=== PATIENT | female | born 1980 | race Caucasian/White ===

== ENCOUNTER 2019-06-04 00:58 | Inpatient (IN) | payer BC ==
[~2019-06-04] VITALS: Ht 170.2 cm; Wt 81.7 kg
[~2019-06-04 00:58] MED LIST: ACYCLOVIR; ALPRAZOLAM; COUMADIN6 MG PO; DARVOCET-N 1001 EACH PO; FLAGYL500 MG PO; LEXAPRO 10 MG T10 MG PO; NORCO 5-325 TA1 EACH PO; VICODIN 5-5001 EACH PO
[2019-06-04 01:00] VITALS: BP 111/69
[2019-06-04 01:19] LABS: BE(vivo) 0.8 mmol/L (-2 to +3); HCO3 23.3 mmol/L (22.0-26.0); PCO2 31.8 mmHg (35.0-45.0); pH 7.483 (7.360-7.450); sO2 97.2 % (92.0-98.0)
[2019-06-04 01:24] LABS: URINE BILIRUBIN 1+ (Negative); URINE BLOOD 2+ (Negative); URINE CLARITY CLOUDY; URINE COLOR YELLOW; URINE GLUCOSE-RANDOM* NEGATIVE (Negative); URINE KETONES 1+ (Negative); URINE LEUKOCYTES NEGATIVE (Negative); URINE NITRITE NEGATIVE (Negative); URINE PROTEIN (DIPSTICK) 3+ (Negative); URINE SPECIFIC GRAVITY >= 1.030 (1.005-1.035); URINE UROBILINOGEN 0.2 E.U./dl (0.2-1.0)
[2019-06-04 01:26] LABS: AMP/METHAMP Negative (Negative); BARBITURATES Negative (Negative); BENZODIAZEPINES Negative (Negative); COCAINE Negative (Negative); METHADONE Negative (Negative); OPIATES Negative (Negative); PCP Negative (Negative)
[2019-06-04 01:34] LABS: ANION GAP 15 mmol/L (7-16); BUN 8 mg/dL (7-18); CALCIUM 7.7 mg/dL (8.5-10.1); CHLORIDE 91 mmol/L (98-107); CO2 26 mmol/L (21-32); CREATININE 0.6 mg/dL (0.6-1.0); GLUCOSE 115 mg/dL (74-106); POTASSIUM 3.1 mmol/L (3.5-5.1); SODIUM 132 mmol/L (136-145)
[2019-06-04 01:36] LABS: BASOPHILS 0.3 % (0.0-2.0); HEMATOCRIT 44.9 % (37.0-47.0); HEMOGLOBIN 15.4 gm/dL (12.0-15.0); MCH 31.7 pg (26.0-34.0); MCHC 34.3 g/dL (28.0-37.0); MCV 92.6 fL (80.0-100.0); PLATELET COUNT 169 thou/uL (150-400); POLYS 82.7 % (36.0-66.0); RBC 4.85 mil/uL (4.20-5.00); RDW 13.3 % (10.5-14.5); WBC 12.1 thou/uL (4.0-11.0)
[2019-06-04 01:44] LABS: BACTERIA 1-9 Few /HPF (None Seen); MUCUS >6 Heavy strn/LPF (None Seen); SQUAMOUS 0-3 Few /LPF (0-3); URINE RBC 3-10 Few /HPF (0-2); URINE WBC 0-5 Rare /HPF (0-5)
[2019-06-04 01:45] LABS: AMORPHOUS URATES Moderate /LPF (None Seen); FINE GRANULAR CASTS 0-3 Few /LPF (None Seen); HYALINE CASTS 4-10 Moderate /LPF (None Seen)
[2019-06-04 01:45] LABS: ALBUMIN 3.9 g/dL (3.4-5.0); LIPASE 126 U/L (73-393); SALICYLATE < 2.8 mg/dL (2.8-20.0); SGOT 99 U/L (15-37); SGPT 101 U/L (30-65); TOTAL BILIRUBIN 0.6 mg/dL (<0.1-1.0); TOTAL PROTEIN 7.9 g/dL (6.4-8.2); TROPONIN-I <0.06 ng/mL (<0.06)
[2019-06-04] MEDS ORDERED: DEPAKOTE ER500 M1 PO (07:17)
[2019-06-04] MEDS ORDERED: OMEPRAZOLE40 MG PO (07:17)
[2019-06-04 10:00] VITALS: BP 136/69
[2019-06-04 10:18] VITALS: BP 140/80
[2019-06-04 10:30] VITALS: BP 157/75
[2019-06-04] MEDS ORDERED: SEROQUEL 25 MG25 M1 PO (10:54)
--- NOTE | 2019-06-04 11:44 | EKG ---
[address] [address] ELECTROCARDIOGRAM REPORT Name: LI LIZARRAGA Room #: 203-P ADM IN .R.#: [id number] Admission: 06/04/19 Attend Phys: Magdaleno Suh MD Discharge: Date of : 82 Report #: [id number] THIS REPORT FOR: //name// 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
[2019-06-04 15:37] VITALS: BP 137/76
--- NOTE | 2019-06-04 16:40 | NUR ---
ADMITTED PATIENT FROM ER. SHE WAS QUITE ANXIOUS ASKING NUMEROUS QUESTIONS AT ONCE. SHE CONCERNED HER WITHDRAWALS WAS ADEQUATELY TREATED SHE FELT NAUSEOUS, " FEEL TERRBILE", ETC. CIWA INITIATED AND PATIENT MEDICATED ADQUATELY. SHE DID SLEEP FOR THREE HOURS, WOKE AND USED THE BATHROOM WITH MINIMAL JITTERING NOTED. NOW SLEEPING. WILL CONT WITH PLAN OF CARE.
[2019-06-04 20:00] VITALS: BP 139/73
[2019-06-05 00:43] VITALS: BP 141/69
--- NOTE | 2019-06-05 03:45 | NUR ---
ASSUMED PT CARE AROUND 1900. PT IS A&OX3-4, BUT FORGETFUL. LORAZEPAM GIVEN INDICATED FOR ETOH W/D PER CIWA SCORES. PT IS ANXIOUS AND RESTLESS AT TIMES. SHE C/O HEADACHE MOST OF THE NIGHT. PT ALSO STATED SHE IS HAVING VIVID DREAMS AND HALLUCINATIONS. IVF INFUSING ORDERED. UP TO BSC OR BTR TO VOID. FALL PRECAUTIONS IN PLACE. VSS. AFEBRILE. PROGRESSING SLOWLY TOWARD POC GOALS. WILL CONTINUE TO MONITOR FURTHER.
[2019-06-05 04:20] VITALS: BP 134/85
[2019-06-05 05:07] LABS: HEMATOCRIT 37.1 % (37.0-47.0); MCH 31.9 pg (26.0-34.0); MCHC 33.8 g/dL (28.0-37.0); MCV 94.3 fL (80.0-100.0); RBC 3.93 mil/uL (4.20-5.00); RDW 13.4 % (10.5-14.5); WBC 4.6 thou/uL (4.0-11.0)
[2019-06-05 05:14] LABS: CALCIUM 7.8 mg/dL (8.5-10.1); CREATININE 0.4 mg/dL (0.6-1.0); HEMOGLOBIN 12.5 gm/dL (12.0-15.0); POTASSIUM 3.2 mmol/L (3.5-5.1)
--- NOTE | 2019-06-05 08:14 | EKG ---
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 MEZA : 1980 Requested By: Magdaleno Suh Order Number: [id number] MD: Orion Frances Measurements Intervals [place] Rate: 116 P: 66 MN: 135 QRS: 75 QRSD: 89 T: 38 QT: 341 QTc: 474 Interpretive Statements Sinus tachycardia Otherwise no significant abnormality Compared to ECG 06/04/2019 01:11:18 No significant changes Electronically Signed On 06-05-2019 8:14:20 CDT by Orion Frances [email or web address] <ELECTRONICALLY SIGNED> By: Orion Frances MD, [facility] 06/05/19 0814 1248 1248 Orion Frances MD, [facility] /EPI
[2019-06-05 12:00] VITALS: BP 137/86
[2019-06-05 16:00] VITALS: BP 143/88
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
--- NOTE | 2019-06-05 18:22 | NUR ---
ASSUMED CARE AT SHIFT CHANGE, ALERT AND ORIENTED X4 AND FORGETFUL. SHE VOICED THAT SHE HAVING VISUAL HALLUCINATIONS, AND VIVID DREAMS. MEDICATED PER [place] [employer]. [facility] CALLED BEACUSE PATIENT CALLED ASKING THEM INFORMATION, THE OFFICER TOOK HER ROOM NUMBER, AND SAID THAT HOMOCIDE DEVISION WILL GIVE HER A CALL. AND WILL CONTINUE WITH POC.
[2019-06-05 19:25] VITALS: BP 124/82
[2019-06-06] MEDS ORDERED: SEROQUEL 50 MG50 MG PO (03:25)
--- NOTE | 2019-06-07 00:37 | NUR ---
LATE ENTRY:OCCURED 06/05/19.SHIFT 7P-7A.PATIENT ALERT,ORIENTED X 4.CIWA SCORE 7.LORAZEPAM GIVEN.PAIN FAIRLY CONTROLLED WITH PAIN PILL.NIGHT MEDICATIONS GIVEN.PATIENT IS ANXIOUS AND WANTS TO GO HOME.PATIENT STATES "MY BOYFRIEND AND I HAVE NOT TELL ANY OF HIS FAMILY AND FRIENDS".EXPLAINED TO PATIENT THE RISKS OF LEAVING AGAINST MEDICAL ADVICE.PATIENT IS WILLING TO SIGN AMA FORM AND SIGNED IT.PATIENT LEFT THE UNIT.PATTERN CHART WRITER,PROBLEM MANAGER AND NURSE PRACTITIONER WAS AWARE.
== END 2019-06-05 23:21 | disposition left against medical advice (07) | DRG 894 ==
LOC: ER 00:58 → 2N 10:00 → EROBS 10:00 → 2N 10:18
PROVIDERS: Emergency Medicine; ADMIT Hospitalist
DX: F10.239 Alcohol dependence with withdrawal, unspecified (principal); G92 Toxic encephalopathy; E87.2 Acidosis; F31.9 Bipolar disorder, unspecified; Y90.8 Blood alcohol level of 240 mg/100 ml or more; G43.909 Migraine, unspecified, not intractable, without status migrainosus; J45.909 Unspecified asthma, uncomplicated; F41.9 Anxiety disorder, unspecified; F17.210 Nicotine dependence, cigarettes, uncomplicated; Z53.29 Procedure and treatment not carried out because of patient's decision for other reasons; Z88.6 Allergy status to analgesic agent
CPT/HCPCS: 10081

== ENCOUNTER 2019-06-06 03:17 | Emergency (ER) | payer OTHER ==
[~2019-06-06] VITALS: Ht 170.2 cm; Wt 79.4 kg
[~2019-06-06 03:17] MED LIST changes: +DEPAKOTE ER500 M1 PO; +OMEPRAZOLE40 MG PO; +SEROQUEL 25 MG25 M1 PO
[2019-06-06] MEDS ORDERED: SEROQUEL 50 MG50 MG PO (03:25)
[2019-06-06 03:44] LABS: URINE BILIRUBIN 1+ (Negative); URINE BLOOD 3+ (Negative); URINE CLARITY CLOUDY; URINE COLOR RED; URINE GLUCOSE-RANDOM* NEGATIVE (Negative); URINE KETONES 1+ (Negative); URINE LEUKOCYTES 1+ (Negative); URINE NITRITE NEGATIVE (Negative); URINE PROTEIN (DIPSTICK) 1+ (Negative)
[2019-06-06 03:56] LABS: AMP/METHAMP Negative (Negative); BARBITURATES Negative (Negative); BENZODIAZEPINES Negative (Negative); COCAINE Negative (Negative); METHADONE Negative (Negative); OPIATES POSITIVE (Negative); PCP Negative (Negative)
[2019-06-06 03:57] LABS: ICTOTEST (BILI CONFIRMATORY) Positive (Negative)
[2019-06-06 03:59] LABS: HYALINE CASTS 4-10 Moderate /LPF (None Seen); MUCUS 0-3 Light strn/LPF (None Seen); SQUAMOUS 0-3 Few /LPF (0-3); URINE WBC 6-15 Few /HPF (0-5)
[2019-06-06 04:00] LABS: BACTERIA 1-9 Few /HPF (None Seen); CRYSTALS None Seen /LPF (None Seen); URINE RBC >20 Many /HPF (0-2)
[2019-06-06 04:08] LABS: ABSOLUTE NEUTROPHILS 4.8 thou/uL (1.4-8.2); BASOPHILS 0.5 % (0.0-2.0); EOSINOPHILS 0.7 % (0.0-3.0); HEMATOCRIT 37.4 % (37.0-47.0); HEMOGLOBIN 12.7 gm/dL (12.0-15.0); LYMPHOCYTES 17.9 % (24.0-44.0); MCH 31.6 pg (26.0-34.0); MCV 92.9 fL (80.0-100.0); MONOCYTES 7.4 % (1.0-8.0); PLATELET COUNT 76 thou/uL (150-400); POLYS 73.5 % (36.0-66.0); RBC 4.03 mil/uL (4.20-5.00); RDW 13.3 % (10.5-14.5); WBC 6.5 thou/uL (4.0-11.0)
[2019-06-06 04:20] LABS: CALCIUM 8.5 mg/dL (8.5-10.1); CREATININE 0.5 mg/dL (0.6-1.0); POTASSIUM 3.3 mmol/L (3.5-5.1)
[2019-06-06 09:36] VITALS: BP 135/78
== END 2019-06-06 09:36 | disposition home or self-care (01) ==
LOC: ER 03:17
PROVIDERS: Emergency Medicine
DX: F99 Mental disorder, not otherwise specified (principal); G43.909 Migraine, unspecified, not intractable, without status migrainosus; J45.909 Unspecified asthma, uncomplicated; F41.9 Anxiety disorder, unspecified; F32.9 Major depressive disorder, single episode, unspecified; F17.210 Nicotine dependence, cigarettes, uncomplicated; Z88.5 Allergy status to narcotic agent